=== PATIENT | female | born 1995 | race Asian ===

== ENCOUNTER 2016-12-29 12:48 | Emergency (ER) | payer SELFPAY ==
--- NOTE | 2016-12-29 14:21 | ED ---
Meg Li Thomas, scribed for Bebo Mccabe MD on 12/29/16 at 1331 . Complex/Multi-Sys Presentation - HPI Summary HPI Summary: The patient is a 21 y/o F BIBA c/o sudden-onset upper abd pain s/p eating falafel at a farmers market today at 11:00. She additionally c/o bilateral arm swelling (improved by time of evaluation), facial swelling, and diarrhea. She suspects that she may have suffered an allergic reaction. Her symptoms have improved by time of evaluation in the ED. Pt denies vomiting, dysphagia, difficulty breathing, and SOB. She reports similar episodes of abd pain and bilateral arm swelling previously after eating unspecified foods. - History Of Current Complaint Chief Complaint: EDAbdPain Time Seen by Provider: 12/29/16 13:21 Hx Obtained From: Patient Onset/Duration: Lasting Hours - onset today at 11:00, Resolved - somewhat Timing: Constant Severity Currently: Mild Aggravating Factor(s): None. Alleviating Factor(s): None. Associated Signs And Symptoms: Positive: Other - Abd pain, bilateral arm swelling, facial swelling, diarrhea; NEGATIVE: vomiting, dysphagia, difficulty breathing, SOB, - Allergies/Home Medications Allergies/Adverse Reactions: Allergies Allergy/AdvReac Type Severity Reaction Status Date / Time No Known Allergies Allergy Verified 12/29/16 12:55 PMH/Surg Hx/FS Hx/Imm Hx Previously Healthy: Yes Endocrine/Hematology History: Denies: Hx Diabetes Cardiovascular History: Denies: Hx Hypertension - Surgical History Surgery Procedure, Year, and Place: None Infectious Disease History: No Infectious Disease History: Denies: Traveled Outside the [place] in Last 30 Days - Family History Known Family History: Negative: Hypertension, Diabetes - Social History Alcohol Use: Occasionally Hx Substance Use: No Substance Use Type: Reports: None Hx Tobacco Use: No Smoking Status (MU): Never Smoked Tobacco Review of Systems Positive: Other - Facial swelling; NEGATIVE: dysphagia Negative: Shortness Of Breath Positive: Diarrhea. Negative: Vomiting Positive: Other - Bilateral arm swelling (improved by time of evaluation All Other Systems Reviewed And Are Negative: Yes Physical Exam - Summary Physical Exam Summary: General: well-appearing, no pain distress Skin: warm, color reflects adequate perfusion, dry. She has some hives on her face. Head: normal Eyes: EOMI, SADIQ ENT: normal Neck: supple, nontender Respiratory: CTA, breath sounds present Cardiovascular: RRR Abdomen: soft, nontender Bowel: present Musculoskeletal: normal, strength/ROM intact Neurological: normal, sensory/motor intact, A&O x3 Psychological: affect/mood appropriate Triage Information Reviewed: Yes Vital Signs On Initial Exam: Initial Vitals Temp Pulse Resp BP Pulse Ox 96.9 F 66 16 95/57 100 12/29/16 12:54 12/29/16 12:54 12/29/16 12:54 12/29/16 12:54 12/29/16 12:54 Vital Signs Reviewed: Yes - Gunpowder Coma Scale Coma Scale Total: 15 Diagnostics - Vital Signs Vital Signs Temp Pulse Resp BP Pulse Ox 12/29/16 12:54 96.9 F 66 16 95/57 100 - Laboratory Lab Statement: Any lab studies that have been ordered have been reviewed, and results considered in the medical decision making process. Complex Multi-Symp Course/Dx Course Of Treatment: IMPROVED IN ED. DISCUSSED TREATMENT OF ALLERGIC REACTION WITH BENADRYL/PEPCID/STEROID IN ED; PATIENT DECLINED SHE WAS IMPROVING. NO CRITICAL CARE TIME. - Diagnoses Provider Diagnoses: Allergic reaction, Abdominal pain, Diarrhea Discharge - Discharge Plan Condition: Stable Disposition: HOME Patient Education Materials: Acute Abdominal Pain (ED), General Allergic Reaction (ED), Acute Diarrhea (ED) Referrals: [facility] - Kevin LUO [Primary Care Provider] - Additional Instructions: FOLLOW UP WITH YOUR DOCTOR. RETURN TO THE EMERGENCY DEPARTMENT FOR ANY WORSENING OF YOUR CONDITION OR QUESTIONS OR CONCERNS. The documentation as recorded by the Meg hartman Thomas accurately reflects the service I personally performed and the decisions made by me, Bebo Mccabe MD.
[2016-12-29 14:33] VITALS: BP 97/65
== END 2016-12-29 14:32 | disposition home or self-care (01) ==
LOC: ED 12:48
DX: R10.10 Upper abdominal pain, unspecified (principal); R19.7 Diarrhea, unspecified; M79.89 Other specified soft tissue disorders; T78.1XXA Other adverse food reactions, not elsewhere classified, initial encounter; X58.XXXA Exposure to other specified factors, initial encounter
CPT/HCPCS: 99282